=== PATIENT | male | born 1965 | race African-American/Black ===

== ENCOUNTER 2019-02-13 18:28 | Inpatient (IN) ==
[2019-02-13] MEDS ORDERED: NS 1,000 ML IV ONE (18:50)
[2019-02-13] MEDS ORDERED: ZOFRAN IV ONE (18:50)
[2019-02-13] MEDS ORDERED: MORPHINE IV ONE (18:50)
--- NOTE | 2019-02-13 18:56 | PROVIDER DOCUMENTATION ---
HPI-General Adult - General Chief Complaint: Abdominal Pain Stated Complaint: ABD PAIN Time Seen by Provider: 02/13/19 18:41 Source: patient Allergies/Adverse Reactions: Patient Allergies Allergy/AdvReac Type Severity Reaction Status Date / Time No Known Allergies Allergy Verified 12/27/18 00:32 Home Medications: Home Medication List Medication Instructions Recorded Confirmed Last Taken Type NK [No Home Medications] 12/27/18 12/27/18 Unknown History - History of Present Illness -Gen Adult Nature of Presenting Problems: Patient is a 53 yobm who complains of lower abdominal pain, worse in the RLQ x 2 days. States he has been constipated as well, had a small BM this morning. Denies melena, vomiting, fever, or any other complaints. Review of Systems - Adult - REVIEW OF SYSTEMS - ADULT Constitutional: reports: no symptoms reported. denies: fever Eyes: reports: no symptoms reported Ears, Nose, Mouth & Throat: reports: no symptoms reported Cardiovascular: reports: no symptoms reported Respiratory: reports: no symptoms reported Gastrointestinal: reports: see HPI Genitourinary: reports: no symptoms reported Musculoskeletal: reports: no symptoms reported Integumentary: reports: no symptoms reported Neurological: reports: no symptoms reported Psychiatric: reports: no symptoms reported Endocrine: reports: no symptoms reported Hematologic/Lymphatic: reports: no symptoms reported Allergic/Immunologic: reports: no symptoms reported All Other Systems: Reviewed and Negative Past History - Adult - PAST MEDICAL HISTORY-ADULT Review of Records: reports: Nursing Assessment Review, Medications Reviewed, Social history reviewed & non-contributory. Major Childhood Illnesses: reports: denies history Cardiovascular: reports: denies history Respiratory: reports: denies history Gastrointestinal: reports: denies history Genitourinary: reports: denies history Musculoskeletal: reports: denies history Neurological: reports: denies history Endocrine/Immune: reports: denies history Other Conditions: reports: denies history - PRIOR SURGERIES/PROCEDURES Surgical/Procedure History: reports: hernia repair, orthopedic (extremity) (right wrist) - IMMUNIZATION STATUS Childhood Immunizations: See Nurse Assessment Flu Vaccine: See Nurse Assessment - FAMILY HISTORY Family History: reviewed, not pertinent - SOCIAL HISTORY Smoking: cigarettes, less than 1 pack/day Alcohol Use Frequency: every day Physical Exam-General - PHYSICAL EXAM-ADULT Initial Vital Signs Reviewed: Yes - CONSTITUTIONAL General Appearance: alert, mild distress. negative: lethargic, slow to respond - EYES Eyes: PERRL/EOMI, pink conjunctivae - HEAD, EARS, NOSE, MOUTH & THROAT HENMT: normocephalic/atraumatic, moist mucous membranes - NECK Neck: non-tender, full range of motion, supple, normal inspection - RESPIRATORY Respiratory: chest non-tender, lungs clear, normal breath sounds, no pleuratic chest pain, no respiratory distress, no accessory muscle use - CARDIOVASCULAR Cardiovascular: regular rate, rhythm, no gallop, no murmur - GASTROINTESTINAL (ABDOMEN) Abdominal Exam: normal bowel sounds, soft, no organomegaly, no pulsatile mass, guarding (RLQ), tenderness (Moderate diffuse), McBurney's point tenderness. negative: distended, rigid, rebound, hernia, mass - MUSCULOSKELETAL Back Exam: normal inspection, no CVA tenderness Extremity: normal range of motion, non-tender, normal gait, normal inspection - SKIN Integumentary: normal color, warm/dry. negative: cyanosis, diaphoresis, jaundice, mottled, pallor - NEUROLOGIC Neurologic: grossly normal, no motor/sensory deficits - PSYCHIATRIC Psych/Mental Status: normal mood/affect, normal thought content, normal thought process, oriented x 3 Progress - PLAN OF CARE/RESULTS Progress/Plan/Lab Results: Vital Signs - 8 hr 02/13/19 18:33 Temperature 98 F Pulse Rate 81 Respiratory Rate 18 Blood Pressure 160/88 O2 Sat by Pulse Oximetry 97 Orders Category Date Time Status NPO Diet 02/13/19 18:[address] ABD/PELVIS W/IV CONT ONLY [CT] Stat Exams 02/13/19 18:49 Ordered AMYLASE [CHEM] Stat Lab 02/13/19 18:39 Ordered CBC WITH DIFF [HEME] Stat Lab 02/13/19 18:39 Ordered COMPREHENSIVE METABOLIC PANEL [CHEM] Stat Lab 02/13/19 18:39 Uncollected LIPASE [CHEM] Stat Lab 02/13/19 18:[address] W/POSS RFLX CULT [URINALYSIS] Stat Lab 02/13/19 18:39 Uncollected 0.9% Sodium Chloride Inj [Ns] 1,000 ml Med 02/13/19 18:50 Active IV 999 mls/hr Morphine Med 02/13/19 18:50 Discontinued 4 mg IV NOW ONE Ondansetron [Zofran] Med 02/13/19 18:50 Discontinued 4 mg IV NOW ONE Result Diagrams: 02/13/19 19:00 02/13/19 19:00 - REASSESSMENT Reassessment #1 Time Reassessed: 21:25 Status: improving (Pain controlled. Pt aware of results and plan to send to [facility] for surgery consult. He is in agreement. Aware that he is to stay NPO.) - CT/MRI 1 CT Study: Abdomen, Pelvis ([facility] - [address], [address], [place] [address] [facility] - [address] [place] [address] Department of Imaging Patient: CHERYL JACKADM Date: 02/13/19#: [id number] : 1965ADM Status: REG [facility]#: [id number] Age/Sex: 53/MRoom/Bed: Loc: P.ED Ordering Physician: Margarito Rodrigez Family Physician: None,PCP Reason for Procedure: lower abd pain, RLQ ten derness ___ Signed EXAM: CT ABD/PELVIS W/IV CONT ONLY - 02/13/2019 HISTORY: lower abd pain, RLQ tenderness TECHNIQUE: CT abdomen/pelvis with intravenous contrast COMPARISON: 02/14/2015 FINDINGS: The visualized lung bases appear clear except for mild dependent atelectasis. There is hepatomegaly similar to prior. There is no focal liver lesion identified, other than a few tiny cysts. The spleen is low normal in size. There are no abnormalities of the adrenal glands or pancreas identified. There are no calcified gallstones or pericholecystic inflammation seen. The bilateral kidneys enhance homogen eously. There is no hydronephrosis. There are no substantially enlarged lymph nodes identified. There are lumbar spine degenerative changes noted. There are anterior bridging osteophytes noted at the bilateral sacroiliac joints. There are inflammatory changes at the right lower quadrant. The base of the appendix appears enlarged, with hazy margins, while the distal appendix is normal size and has air in the lumen. There is diverticulosis at the cecum. These findings are suspicious for acute appendicitis at the base of the appendix, but the possibility that this originates as diverticulitis near the base of the appendix with secondary involvement of the appendix cannot be entirely excluded. There is no abscess identified. There is no free air. There is no evidence of bowel obstruction. IMPRESSION: Evidence of acute appendicitis involving the base of the appendix, but not yet the distal appendix. No abscess. No free air. This exam was performed using automated exposure control, adjustment of mA or kV according to patient size, and/or use of iterative reconstruction technique. E lectronically signed by Matthew Meadows 02/13/2019 8:50 PM 02/13/192049 Interpreting Physician: Matthew Meadows MD Dictated Date/Time: 02/13/192031 cc: Margarito Rodrigez; None,PCP) - CONSULTS/PCP/HOSPITALIST Notification #1 *Consult/PCP/Hospitalist*: Dr. Remy Time Discussed: 21:00 Reason/Comments: abdominal pain, possible acute appendicitis Consult Disposition: Admit (Discussed CT findings with Dr. Remy who recommends admission to [facility] and IV abx, states [facility] can consult him. [facility] to send pt to [facility].) #2 Consult: Dr. Morgan Time Discussed: 21:15 Reason/Comments: admission- abdominal pain Consult Disposition: Admit (Discussed CT result and case with Dr. Morgan who accepted admission at [facility].) Departure - Departure Date of Disposition Decision: 02/13/19 Time of Disposition Decision: 21:00 DIAGNOSIS: Abdominal pain Qualifiers: Abdominal location: unspecified location Qualified Code(s): R10.9 - Unspecified abdominal pain Disposition: ADMITTED INPATIENT 09 Certified Medical Emergency: Emergent Condition: Stable Referrals and Follow-Ups: None,PCP [Primary Care Provider] - - Critical Care Note This patient required my direct & personal management of CC.: No Attestation - Physician/ NELLY Attestation Patient care was provided by Advanced Practice Provider:: Yes Advanced Practice Provider:: Margarito Rodrigez Advanced Practice Provider documentation review:: The Mid-level provider documentation, treatment plan and medical decision making was reviewed by the physician who agrees with all treatment and medical decision making by the MLP. The physician spent face to face time with patient:: No Advanced Practice Provider documentation review:: Supervising physician onsite and consulted in the evaluation and care of this patient. The physician did not have a face to face encounter with the patient.
[2019-02-13 19:17] LABS: BASO# 0.03 X1000 (0.0-0.2); BASO% 0.2 % (0.0-0.8); EOS# 0.13 X1000 (0.0-0.7); EOS% 0.9 % (0.0-10.0); HEMATOCRIT 42.9 % (42.0-52.0); HEMOGLOBIN 14.5 g/dL (14.0-18.0); IMM GRAN# 0.03 X1000 (0.0-0.04); IMM GRAN% 0.2 % (0.0-0.5); LYMPH# 1.21 X1000 (1.2-3.4); LYMPH% 8.5 % (20.5-51.1); MCH 33.5 PG (27-31); MCHC 33.8 g/dL (33-37); MCV 99.1 FL (81-99); MONO# 1.03 X1000 (0.11-0.59); MONO% 7.2 % (1.7-9.3); MPV 9.8 FL (7.4-10.4); NEUT# 11.84 X1000 (1.4-6.5); PLT 319 X1000 (130-400); RBC 4.33 XMIL (4.7-6.1); RDW 11.6 % (11.5-14.5); WBC 14.27 X1000 (4.8-10.8)
[2019-02-13 19:26] LABS: BILIRUBIN URINE NEGATIVE (NEGATIVE); BLOOD URINE NEGATIVE (NEGATIVE); CLARITY CLEAR (CLEAR); COLOR YELLOW; GLUCOSE URINE NEGATIVE (NEGATIVE); KETONE URINE TRACE mg/dL (NEGATIVE); LEUKOCYTES URINE 1+ (NEGATIVE); NITRITE URINE NEGATIVE (NEGATIVE); PH URINE 6.5; PROTEIN URINE TRACE mg/dL (NEGATIVE); SP GRAVITY URINE 1.015; UROBILINOGEN URINE 4 mg/dL
[2019-02-13 19:29] LABS: URINE SOURCE CLEAN CATCH
[2019-02-13 19:31] LABS: AGAP 12; ALBUMIN 4.4 g/dL (3.5-5.0); ALKALINE PHOSPHATASE 85 U/L (32-122); BUN 18 mg/dL (8-22); CALCIUM 9.9 mg/dL (8.8-10.2); CHLORIDE 105 mmol/L (98-107); COSMO 282; CREATININE 0.9 mg/dL (0.7-1.2); ESTIMATED GFR > 60; GLUCOSE 106 mg/dL (70-104); GOT 17 U/L (10-34); GPT 11 U/L (10-44); LIPASE 17 U/L (13-60); POTASSIUM 4.2 mmol/L (3.5-5.1); SODIUM 140 mmol/L (136-145); TCO2 23 mmol/L (25-35); TOTAL PROTEIN 7.2 g/dL (6.3-8.3); URINE EPITHELIAL CELLS <10 /HPF (<10); URINE RBC <10 /HPF (<10); URINE WBC <10 /HPF (<10)
[2019-02-13 19:32] LABS: URINE BACTERIA NEGATIVE /HFP; URINE CAST NONE SEEN /LPF; URINE CRYSTAL NONE SEEN /HPF; URINE YEAST NONE SEEN /HPF
[2019-02-13] MEDS ORDERED: BENTYL IM ONE (20:36)
[2019-02-13] MEDS ORDERED: TORADOL IV ONE (20:36)
--- NOTE | 2019-02-13 20:52 | Diag Imaging Result Doc PS360 ---
EXAM: CT ABD/PELVIS W/IV CONT ONLY - 02/13/2019 HISTORY: lower abd pain, RLQ tenderness TECHNIQUE: CT abdomen/pelvis with intravenous contrast COMPARISON: 02/14/2015 FINDINGS: The visualized lung bases appear clear except for mild dependent atelectasis. There is hepatomegaly similar to prior. There is no focal liver lesion identified, other than a few tiny cysts. The spleen is low normal in size. There are no abnormalities of the adrenal glands or pancreas identified. There are no calcified gallstones or pericholecystic inflammation seen. The bilateral kidneys enhance homogeneously. There is no hydronephrosis. There are no substantially enlarged lymph nodes identified. There are lumbar spine degenerative changes noted. There are anterior bridging osteophytes noted at the bilateral sacroiliac joints. There are inflammatory changes at the right lower quadrant. The base of the appendix appears enlarged, with hazy margins, while the distal appendix is normal size and has air in the lumen. There is diverticulosis at the cecum. These findings are suspicious for acute appendicitis at the base of the appendix, but the possibility that this originates as diverticulitis near the base of the appendix with secondary involvement of the appendix cannot be entirely excluded. There is no abscess identified. There is no free air. There is no evidence of bowel obstruction. IMPRESSION: Evidence of acute appendicitis involving the base of the appendix, but not yet the distal appendix. No abscess. No free air. This exam was performed using automated exposure control, adjustment of mA or kV according to patient size, and/or use of iterative reconstruction technique. Electronically signed by Matthew Meadows 02/13/2019 8:50 PM
[2019-02-13] MEDS ORDERED: ZOSYN 3.375 GM in NS 50 ML IV ONE (20:56)
[2019-02-13] MEDS ORDERED: DILAUDID IV PRN (22:40)
[2019-02-13] MEDS ORDERED: SODIUM CHLORIDE 0.9% INJ SCH (22:45)
[2019-02-13] MEDS ORDERED: NICODERM PATCH TD ONE (23:10)
[2019-02-13] MEDS ORDERED: NICODERM PATCH TD PRN (23:11)
[2019-02-13] MEDS: ZOFRAN IV PRN (23:47)
[2019-02-14] MEDS: NS 1,000 ML IV SCH ×2 (00:52→12:54)
[2019-02-14] MEDS: PROTONIX IV SCH ×2 (00:52→22:51)
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
[2019-02-14] MEDS: ZOSYN 3.375 GM in NS 50 ML IV SCH ×4 (03:45→20:56)
[2019-02-14] MEDS: DILAUDID IV PRN ×6 (03:58→22:20)
[2019-02-14] MEDS: ZOFRAN IV PRN ×4 (03:59→22:20)
[2019-02-14] MEDS ORDERED: DIPRIVAN 1% ONE (07:51)
[2019-02-14] MEDS ORDERED: XYLOCAINE-MPF 2% ONE (07:52)
[2019-02-14] MEDS ORDERED: QUELICIN (DOSE) ONE (07:52)
[2019-02-14] MEDS ORDERED: ZOFRAN ONE (08:04)
[2019-02-14] MEDS ORDERED: TORADOL ONE (08:04)
[2019-02-14] MEDS ORDERED: DECADRON ONE (08:04)
[2019-02-14] MEDS ORDERED: FENTANYL ONE (08:10)
[2019-02-14] MEDS ORDERED: LR 1,000 ML ONE (08:16)
[2019-02-14] MEDS ORDERED: SENSORCAINE 0.5%-EPI 1:200,000 ONE (08:16)
[2019-02-14] MEDS ORDERED: ROBINUL ONE (08:49)
[2019-02-14] MEDS: DILAUDID ONE ×2 (09:15→09:25)
[2019-02-14 09:20] LABS: URINE SOURCE CATH
--- NOTE | 2019-02-14 09:24 | OPERATIVE NOTE ---
PROCEDURE DATE: 02/14/2019 PREOPERATIVE DIAGNOSIS: Right lower quadrant pain. POSTOPERATIVE DIAGNOSIS: Possible early appendicitis, possible colitis. PROCEDURES PERFORMED: 1. Diagnostic laparoscopy. 2. Laparoscopic appendectomy. SURGEON: Eros Remy MD. PARKING ASSISTANT: None. ANESTHESIA: General endotracheal. INTRAOPERATIVE FINDINGS: Inflamed base of the appendix with possible inflamed cecum. COMPLICATIONS: None at the time of this dictation. ESTIMATED BLOOD LOSS: 10 mL. SPECIMEN REMOVED: Appendix. BRIEF HISTORY: A 53-year-old gentleman presenting with right lower quadrant pain. CT scan showed possibility for appendicitis. It was felt that he would benefit from appendectomy or at least a diagnostic laparoscopy. The CT scan was somewhat inconclusive in that it might be colitis. The risks, benefits, and alternatives of the procedure were discussed with the patient and documented in the chart. All questions were answered. DESCRIPTION OF PROCEDURE: After informed consent was obtained, the patient was brought to the operative theatre, transferred to the operating table, placed in the supine position. General endotracheal anesthesia was then performed without complication. A formal time-out was then performed, confirming patient, date, and procedure. All were in agreement. At that time, attention was given to the abdomen. An infraumbilical incision was made, through which initially I placed a 5 mm trocar. Then upsized it to a 12 mm trocar, connected it to insufflation. Pneumoperitoneum was achieved. Under direct visualization, we placed two more trocars, one 5 mm right upper quadrant and one 5 mm left lower quadrant. Using these, we identified the right lower quadrant. The cecum appeared to be mildly thickened but externally did not show any signs of creeping fat or inflammatory bowel disease. The terminal ilium looked okay. The appendix was mildly inflamed and injected. We used the LigaSure to elevate and dissect through the mesoappendix. It was somewhat retroperitoneal but we were able to mobilize it. We then fired a stapler across the appendix. I did notice that there was still somewhat of a stump, so we placed another stapler across the stump and removed some more of the appendix. The staple lines were intact. There was no bleeding, no drainage of succus or stool, there was no injury apparently to the small bowel. We then reexamined the staple line and it was intact. The cecum again felt a little bit thickened but I did not see any purulence. We removed the appendix with an EndoCatch through the infraumbilical incision, closed the infraumbilical incision with 0 Vicryl on a Ernesto- Crista device after irrigating out the abdomen. We then closed all skin incisions with 4-0 Monocryl. The patient tolerated the procedure well and was transferred to the recovery room. We will monitor him for the possibility of colitis. cc: Eros Remy MD
[2019-02-14] MEDS ORDERED: NORCO-5 PO PRN (09:48)
[2019-02-14 09:54] LABS: BILIRUBIN URINE NEGATIVE (NEGATIVE); BLOOD URINE TRACE (NEGATIVE); COLOR YELLOW; GLUCOSE URINE NEGATIVE (NEGATIVE); KETONE URINE NEGATIVE (NEGATIVE); LEUKOCYTES URINE NEGATIVE (NEGATIVE); NITRITE URINE NEGATIVE (NEGATIVE); PROTEIN URINE TRACE mg/dL (NEGATIVE); TURBIDITY URINE CLEAR (CLEAR); UR EPITHELIAL CELLS <10 /HPF (<10); URINE BACTERIA NEGATIVE /HPF; URINE RBC <10 /HPF (<10); URINE WBC <10 /HPF (<10); UROBILINOGEN URINE 2 mg/dL (NORMAL)
--- NOTE | 2019-02-14 11:08 | PROGRESS NOTE ---
DATE: 02/14/2019 SUBJECTIVE: This morning, Mr. Bañuelos refers to be doing a lot better. He just came out of surgery. He had a laparoscopic appendectomy. OBJECTIVE: Vital Signs: Blood pressure is 148/83, pulse of 81, respirations 22, temperature is 98.3 degrees. General: Mr. Bañuelos is a 53-year-old gentleman. He is in bed. No distress. Mucosa is pink and moist. Anicteric. Acyanotic. Neck: Supple. Chest: Clear. Cardiovascular: Regular rate and rhythm. GI: Abdomen is soft. There are recent laparoscopic incisions on the anterior abdominal wall. Extremities: No pedal edema. 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 LABORATORY DATA: Laboratory data from yesterday has been reviewed. No changes. MEDICATIONS: The patient is currently on Zosyn as an antimicrobial therapy. DIAGNOSTIC STUDIES: A CT scan that was done on admission did show evidence of acute appendicitis involving the base of the appendix. The surgery report shows inflamed base of the appendix with possible inflamed cecum. ASSESSMENT: 1. Acute appendicitis, status post laparoscopic appendectomy. I have spoken with Dr. Remy. He recommends to keep the patient overnight. Continue with the antibiotics, and he will re- evaluate the patient weeks down the line for possible colonoscopy. 2. Tobacco use and abuse. The patient has been counseled. For now, Mr. Bañuelos has been started on clear liquids by Surgery. Will continue with the current antibiotics, hydration, and re-evaluate him in the morning. Hopefully, we can get him home per final recommendations from Surgery. cc: Андрей Murray MD
[2019-02-14 11:21] LABS: HEMATOCRIT 39.8 % (42.0-52.0); HEMOGLOBIN 13.1 g/dL (14.0-18.0); MCH 33.2 PG (27-31); MCV 100.8 FL (81-99); RBC 3.95 XMIL (4.7-6.1); WBC 15.98 X1000 (4.8-10.8)
[2019-02-14 11:22] LABS: BASO# 0.01 X1000 (0.0-0.2); BASO% 0.1 % (0.0-0.8); EOS# 0.01 X1000 (0.0-0.7); EOS% 0.1 % (0.0-10.0); IMM GRAN# 0.04 X1000 (0.0-0.04); IMM GRAN% 0.3 % (0.0-0.5); LYMPH# 0.38 X1000 (1.2-3.4); LYMPH% 2.4 % (20.5-51.1); MCHC 32.9 g/dL (33-37); MONO# 0.21 X1000 (0.11-0.59); MONO% 1.3 % (1.7-9.3); MPV 9.4 FL (7.4-10.4); NEUT# 15.33 X1000 (1.4-6.5); NEUT% 95.8 % (42.2-75.2); PLT 288 X1000 (130-400); RDW 11.7 % (11.5-14.5)
[2019-02-14 11:42] LABS: AGAP 10; ALB/GLOB RATIO 1.4; ALBUMIN 3.7 g/dL (3.5-5.0); ALKALINE PHOSPHATASE 66 U/L (32-122); BUN 14 mg/dL (8-22); CALCIUM 8.6 mg/dL (8.8-10.2); CHLORIDE 104 mmol/L (98-107); COSMO 278; CREATININE 0.9 mg/dL (0.7-1.2); ESTIMATED GFR > 60; GLUCOSE 125 mg/dL (70-104); GOT 16 U/L (10-34); GPT 9 U/L (10-44); POTASSIUM 3.8 mmol/L (3.5-5.1); SODIUM 138 mmol/L (136-145); TCO2 24 mmol/L (25-35); TOTAL BILIRUBIN 0.87 mg/dL (0.20-1.00); TOTAL PROTEIN 6.3 g/dL (6.3-8.3)
[2019-02-14 11:59] LABS: ANISOCYTOSIS 2+; BANDS 2 % (0-1); LYMPHS 2 % (21-51); MONO 1 % (1-9); SEGS 95 % (42-75)
[2019-02-14] MEDS: MIRALAX PO SCH (20:56)
[2019-02-15] MEDS: DILAUDID IV PRN ×2 (01:04→04:58)
[2019-02-15] MEDS: NS 1,000 ML IV SCH (01:05)
[2019-02-15] MEDS: ZOSYN 3.375 GM in NS 50 ML IV SCH ×2 (02:28→08:26)
[2019-02-15] MEDS: ZOFRAN IV PRN (04:58)
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
[2019-02-15] MEDS ORDERED: NORCO-10 PO PRN (06:23)
--- NOTE | 2019-02-15 07:19 | GENERAL SURGERY PROGRESS NOTE ---
DATE: 02/15/2019 SUBJECTIVE: Patient seems to be doing okay. He still has some pain, but it seems to be improved. OBJECTIVE: Vital Signs: Patient is currently afebrile. His vital signs are stable. General: No acute distress. Cardiovascular: Regular rate and rhythm. Lungs: Grossly clear. Abdomen: Soft. Appropriately tender. There is some tenderness in the right lower quadrant. ASSESSMENT AND PLAN: A 53-year-old gentleman status post appendectomy. 1. Postoperative state at this time. I think he still has some degree of underlying colitis so would like him to go home on Augmentin. I have put a prescription in the chart. From a surgical point of view, he probably needs a colonoscopy in 6 weeks to evaluate further. 2. Incidentally noted bilateral inguinal hernias. At this time, I would like to treat him for his colitis first, but when he follows up may need to consider surgical intervention because during the procedure we noticed bilateral inguinal hernias, but again I do not think this is causing him any acute issue. From a surgical point of view, I think he can be discharged home. cc: Eros Remy MD
[2019-02-15 07:36] VITALS: BP 144/69
[2019-02-15] MEDS: MIRALAX PO SCH (08:26)
[2019-02-15] MEDS ORDERED: LACTULOSE PO ONE (09:58)
--- NOTE | 2019-02-16 11:45 | DISCHARGE SUMMARY ---
ADMISSION DATE: 02/13/2019 DISCHARGE DATE: 02/15/2019 DISPOSITION: Home. FOLLOW-UP: 1. Dr. Everett. 2. Dr. Remy. CONSULTATION DURING THIS ADMISSION: Surgery was consulted. Patient was seen by Dr. Remy. INVASIVE PROCEDURES DONE DURING THIS ADMISSION: Laparoscopic appendectomy was done by Dr. Remy on 02/14/2019. IMAGING STUDIES OF SIGNIFICANCE: A CT scan of the abdomen and pelvis was done which showed evidence of acute appendicitis involving the base of the appendix, but not yet the distal appendix. No abscess. No free air. ADMISSION DIAGNOSIS: 1. Acute appendicitis. 2. Tobacco use and abuse. DIAGNOSIS AT THE TIME OF DISCHARGE: 1. Acute appendicitis status post laparoscopic appendectomy. 2. Tobacco use and abuse. DISCHARGE MEDICATIONS: Polk 10 mg p.o. q. 6 h. p.r.n. Augmentin 875 p.o. b.i.d. Nicotine patch. PRESENTING COMPLAINT: Lower abdominal pain for 2 days. HISTORY OF PRESENT COMPLAINT: Mr. Bañuelos is a 53-year-old gentleman who presented to the emergency department because of abdominal pain which has been going on for the past 2 days without any improvement. Upon presenting, he was evaluated including a CT scan of the abdomen, which revealed an acute appendicitis. Mr. Bañuelos was admitted to the medical services for surgery consultation and further management. HOSPITAL COURSE: Mr. Bañuelos was admitted to the medical floor. He was started on broad-spectrum IV antibiotics. Surgery was consulted. The patient was seen by Dr. Johnson saw Dr. Remy. The patient was sent to OR and a laparoscopic appendectomy was done. Postoperatively Mr. Bañuelos refers to be doing well. He has been tolerating his diet. He continues to be hemodynamically stable. He has been evaluated by surgery today and they recommend that he can be discharged. Dr. Remy has already written up Augmentin and Polk for outpatient management and they will follow up with him in the office. We think Mr. Bañuelos is stable for discharge. All the discharge instructions including follow up with surgery has been discussed with him. was at the bedside at the time of the encounter. Time spent for discharge is 36 minutes. cc: MD Birdie Soto MD
== END 2019-02-15 13:05 | disposition home or self-care (01) | DRG 343 ==
LOC: P.ED 18:28 → 3N 18:28 → OBSVTOIN 21:46 → SUATTDRO 21:46
PROVIDERS: ATTEND Internal Medicine